=== PATIENT | female | born 1965 | race African-American/Black ===

== ENCOUNTER 2023-06-23 06:51 | Inpatient (IN) | payer OTHER ==
[2023-06-23 07:11] LABS: #Basophils 0.1 thou/uL (0.0-0.2); #Eosinphils 0.1 thou/uL (0.0-0.7); #Monocytes 0.5 thou/uL (0.11-0.59); #Neutrophils 3.7 thou/uL (1.40-6.50); %Eosinophils 1.9 % (0.0-10.0); %Lymphocytes 30.9 % (21.0-51.0); %Monocytes 7.5 % (0.0-10.0); %Neutrophils 58.4 % (42.0-75.0); Hematocrit 40.4 % (36.0-47.0); Hemoglobin 13.2 g/dL (12.0-16.0); Mean Corpuscular HGB CONC 32.7 g/dL (32.0-36.0); Mean Corpuscular Hemoglobin 28.9 pg (27.0-31.0); Mean Corpuscular Volume 88.4 fl (78.0-98.0); Mean Platelet Volume 11.2 fL (7.4-10.4); Platelet Count 195 10x3/uL (130-400); RBC Distribution Width 13.8 % (11.5-14.5); Red Blood Cell (RBC) Count 4.57 mill/uL (4.20-5.40); White Blood Cell (WBC) Count 6.3 10x3/uL (4.8-10.8)
[2023-06-23 07:20] LABS: ALT (SGPT) 18 U/L (8-55); AST (SGOT) 16 U/L (5-34); Albumin 4.3 g/dL (3.5-5.0); Alkaline Phosphatase 127 U/L (40-110); Anion Gap 14 mmol/L (10-20); BUN (Urea Nitrogen) 12 mg/dL (9.8-20.1); Bilirubin, Total 0.3 mg/dL (0.2-1.2); Calc. Creatinine Clearance 0 mL/min (70-130); Calcium 9.1 mg/dL (7.8-10.44); Carbon Dioxide 26 mmol/L (22-29); Chloride 104 mmol/L (98-107); Estimated GFR 70; Globulin 3.7 g/dL (2.4-3.5); Glucose 133 mg/dL (70-105); Potassium 3.5 mmol/L (3.5-5.1); Sodium 140 mmol/L (136-145)
[2023-06-23 07:24] LABS: Troponin I 0.019 ng/mL (< 0.028)
[2023-06-23 07:29] LABS: PTT 27.7 sec (22.9-36.1)
[2023-06-23] MEDS ORDERED: Aspirin Chewable 81 MG TAB ONE (08:23)
[2023-06-23] MEDS ORDERED: Acetaminophen 650 MG Suppository PR PRN (08:49)
[2023-06-23] MEDS ORDERED: Apixaban 5 MG TAB ONE (10:09)
[2023-06-23] MEDS ORDERED: Carvedilol 6.25 MG TAB ONE (10:09)
[2023-06-23] MEDS ORDERED: Aspirin 81 mg Enteric Coated Tablet ONE (10:09)
[2023-06-23] MEDS: Aspirin 81 mg Enteric Coated Tablet PO SCH (10:21)
[2023-06-23] MEDS: Apixaban 5 MG TAB PO SCH (10:22)
[2023-06-23] MEDS: Carvedilol 6.25 MG TAB PO SCH ×2 (10:22→17:47)
[2023-06-23] MEDS: dilTIAZem CD 300 MG CAP PO SCH (10:23)
[2023-06-23] MEDS: Oxybutynin ER 5 MG TAB PO SCH (10:40)
[2023-06-23 11:47] VITALS: BMI 36.6
[2023-06-23] MEDS: Atorvastatin Calcium 40 MG TAB PO SCH (21:29)
[2023-06-23] MEDS: Sertraline 100 MG TAB PO SCH (21:35)
[2023-06-24 04:23] LABS: #Basophils 0.1 thou/uL (0.0-0.2); #Eosinphils 0.2 thou/uL (0.0-0.7); #Monocytes 0.6 thou/uL (0.11-0.59); #Neutrophils 3.1 thou/uL (1.40-6.50); %Eosinophils 2.7 % (0.0-10.0); %Monocytes 9.3 % (0.0-10.0); %Neutrophils 48.7 % (42.0-75.0); Hematocrit 39.9 % (36.0-47.0); Hemoglobin 12.7 g/dL (12.0-16.0); Mean Corpuscular HGB CONC 31.8 g/dL (32.0-36.0); Mean Corpuscular Volume 88.1 fl (78.0-98.0); Mean Platelet Volume 11.2 fL (7.4-10.4); Platelet Count 198 10x3/uL (130-400); RBC Distribution Width 13.9 % (11.5-14.5); Red Blood Cell (RBC) Count 4.53 mill/uL (4.20-5.40); White Blood Cell (WBC) Count 6.3 10x3/uL (4.8-10.8)
[2023-06-24 04:51] LABS: Anion Gap 10 mmol/L (10-20); BUN (Urea Nitrogen) 13 mg/dL (9.8-20.1); Calc. Creatinine Clearance 123 mL/min (70-130); Carbon Dioxide 28 mmol/L (22-29); Cardiac Risk 3.3 (Less than 4.5); Chloride 104 mmol/L (98-107); Cholesterol 147 mg/dl (< 200 Desired); Estimated GFR 74; Glucose 119 mg/dL (70-105); HDL Cholesterol 45 mg/dL (>60 Neg Risk); LDL Cholesterol, Calculated 88 mg/dL; Potassium 3.5 mmol/L (3.5-5.1); Sodium 138 mmol/L (136-145); Triglycerides 71 mg/dL (Less than 150)
[2023-06-24] MEDS: Oxybutynin ER 5 MG TAB PO SCH (10:30)
[2023-06-24] MEDS ORDERED: Iopamidol-370 76% 500 ML MDV (1 ML CHARGE) ONE (15:37)
[2023-06-24] MEDS: Sertraline 100 MG TAB PO SCH (21:57)
[2023-06-25 05:43] LABS: #Basophils 0.1 thou/uL (0.0-0.2); #Eosinphils 0.2 thou/uL (0.0-0.7); #Monocytes 0.7 thou/uL (0.11-0.59); #Neutrophils 2.6 thou/uL (1.40-6.50); %Eosinophils 3.3 % (0.0-10.0); %Lymphocytes 41.3 % (21.0-51.0); %Monocytes 10.8 % (0.0-10.0); %Neutrophils 43.4 % (42.0-75.0); Hematocrit 40.6 % (36.0-47.0); Hemoglobin 13.1 g/dL (12.0-16.0); Mean Corpuscular HGB CONC 32.3 g/dL (32.0-36.0); Mean Corpuscular Hemoglobin 28.7 pg (27.0-31.0); Mean Corpuscular Volume 88.8 fl (78.0-98.0); Mean Platelet Volume 11.1 fL (7.4-10.4); Platelet Count 192 10x3/uL (130-400); Red Blood Cell (RBC) Count 4.57 mill/uL (4.20-5.40)
[2023-06-25 06:03] LABS: Anion Gap 14 mmol/L (10-20); BUN (Urea Nitrogen) 15 mg/dL (9.8-20.1); Calc. Creatinine Clearance 117 mL/min (70-130); Calcium 8.8 mg/dL (7.8-10.44); Carbon Dioxide 27 mmol/L (22-29); Chloride 104 mmol/L (98-107); Estimated GFR 69; Glucose 114 mg/dL (70-105); Potassium 4.1 mmol/L (3.5-5.1); Sodium 141 mmol/L (136-145)
[2023-06-25] MEDS: Losartan 25 MG TAB PO SCH (09:25)
[2023-06-26 06:39] LABS: #Basophils 0.1 thou/uL (0.0-0.2); #Eosinphils 0.2 thou/uL (0.0-0.7); #Monocytes 0.7 thou/uL (0.11-0.59); #Neutrophils 3.3 thou/uL (1.40-6.50); %Basophils 0.9 % (0.0-1.0); %Eosinophils 2.6 % (0.0-10.0); %Lymphocytes 38.5 % (21.0-51.0); %Monocytes 9.7 % (0.0-10.0); %Neutrophils 48.2 % (42.0-75.0); Hematocrit 41.2 % (36.0-47.0); Hemoglobin 13.1 g/dL (12.0-16.0); Mean Corpuscular HGB CONC 31.8 g/dL (32.0-36.0); Mean Corpuscular Hemoglobin 28.3 pg (27.0-31.0); Mean Platelet Volume 11.5 fL (7.4-10.4); Platelet Count 198 10x3/uL (130-400); RBC Distribution Width 13.8 % (11.5-14.5); Red Blood Cell (RBC) Count 4.63 mill/uL (4.20-5.40); White Blood Cell (WBC) Count 6.8 10x3/uL (4.8-10.8)
[2023-06-26 07:09] LABS: Anion Gap 12 mmol/L (10-20); BUN (Urea Nitrogen) 11 mg/dL (9.8-20.1); Calc. Creatinine Clearance 130 mL/min (70-130); Calcium 8.8 mg/dL (7.8-10.44); Carbon Dioxide 27 mmol/L (22-29); Chloride 106 mmol/L (98-107); Estimated GFR 80; Glucose 117 mg/dL (70-105); Potassium 4.2 mmol/L (3.5-5.1); Sodium 141 mmol/L (136-145)
[2023-06-26] MEDS: Carvedilol 6.25 MG TAB PO SCH ×2 (10:29→16:13)
[2023-06-26] MEDS: Hydrochlorothiazide 25 MG TAB PO SCH (13:39)
[2023-06-27 06:32] LABS: #Basophils 0.1 thou/uL (0.0-0.2); #Eosinphils 0.2 thou/uL (0.0-0.7); #Monocytes 0.7 thou/uL (0.11-0.59); #Neutrophils 3.3 thou/uL (1.40-6.50); %Basophils 0.9 % (0.0-1.0); %Eosinophils 2.5 % (0.0-10.0); %Lymphocytes 38.4 % (21.0-51.0); %Monocytes 10.6 % (0.0-10.0); %Neutrophils 47.3 % (42.0-75.0); Hematocrit 42.1 % (36.0-47.0); Hemoglobin 13.4 g/dL (12.0-16.0); Mean Corpuscular HGB CONC 31.8 g/dL (32.0-36.0); Mean Corpuscular Volume 88.1 fl (78.0-98.0); Mean Platelet Volume 10.4 fL (7.4-10.4); Platelet Count 192 10x3/uL (130-400); RBC Distribution Width 13.6 % (11.5-14.5); Red Blood Cell (RBC) Count 4.78 mill/uL (4.20-5.40); White Blood Cell (WBC) Count 6.9 10x3/uL (4.8-10.8)
[2023-06-27 06:59] LABS: Anion Gap 10 mmol/L (10-20); BUN (Urea Nitrogen) 15 mg/dL (9.8-20.1); Calc. Creatinine Clearance 122 mL/min (70-130); Calcium 9.1 mg/dL (7.8-10.44); Carbon Dioxide 29 mmol/L (22-29); Chloride 103 mmol/L (98-107); Estimated GFR 73; Glucose 135 mg/dL (70-105); Sodium 138 mmol/L (136-145)
[2023-06-27] MEDS: Acetaminophen 325 MG TAB PO PRN (09:28)
[2023-06-27] MEDS: Hydrochlorothiazide 25 MG TAB PO SCH (09:29)
[2023-06-28 06:27] LABS: #Basophils 0.1 thou/uL (0.0-0.2); #Eosinphils 0.1 thou/uL (0.0-0.7); #Monocytes 0.6 thou/uL (0.11-0.59); #Neutrophils 2.9 thou/uL (1.40-6.50); %Eosinophils 2.3 % (0.0-10.0); %Lymphocytes 39.6 % (21.0-51.0); %Monocytes 9.4 % (0.0-10.0); %Neutrophils 47.4 % (42.0-75.0); Hemoglobin 13.2 g/dL (12.0-16.0); Mean Corpuscular HGB CONC 32.2 g/dL (32.0-36.0); Mean Corpuscular Hemoglobin 28.4 pg (27.0-31.0); Mean Corpuscular Volume 88.4 fl (78.0-98.0); Mean Platelet Volume 10.9 fL (7.4-10.4); Platelet Count 198 10x3/uL (130-400); RBC Distribution Width 13.8 % (11.5-14.5); Red Blood Cell (RBC) Count 4.64 mill/uL (4.20-5.40); White Blood Cell (WBC) Count 6.1 10x3/uL (4.8-10.8)
[2023-06-28 06:49] LABS: Anion Gap 12 mmol/L (10-20); BUN (Urea Nitrogen) 19 mg/dL (9.8-20.1); Calc. Creatinine Clearance 115 mL/min (70-130); Calcium 8.8 mg/dL (7.8-10.44); Carbon Dioxide 28 mmol/L (22-29); Chloride 103 mmol/L (98-107); Estimated GFR 69; Glucose 141 mg/dL (70-105); Potassium 3.9 mmol/L (3.5-5.1); Sodium 139 mmol/L (136-145)
[2023-06-29 05:56] LABS: #Basophils 0.1 thou/uL (0.0-0.2); #Eosinphils 0.2 thou/uL (0.0-0.7); #Monocytes 0.7 thou/uL (0.11-0.59); #Neutrophils 2.9 thou/uL (1.40-6.50); %Basophils 0.9 % (0.0-1.0); %Eosinophils 2.6 % (0.0-10.0); %Lymphocytes 41.7 % (21.0-51.0); %Monocytes 10.6 % (0.0-10.0); Hematocrit 39.6 % (36.0-47.0); Hemoglobin 12.8 g/dL (12.0-16.0); Mean Corpuscular HGB CONC 32.3 g/dL (32.0-36.0); Mean Corpuscular Hemoglobin 28.1 pg (27.0-31.0); Mean Platelet Volume 11.4 fL (7.4-10.4); Platelet Count 190 10x3/uL (130-400); RBC Distribution Width 13.6 % (11.5-14.5); Red Blood Cell (RBC) Count 4.55 mill/uL (4.20-5.40); White Blood Cell (WBC) Count 6.5 10x3/uL (4.8-10.8)
[2023-06-29 06:14] LABS: Anion Gap 11 mmol/L (10-20); BUN (Urea Nitrogen) 20 mg/dL (9.8-20.1); Calc. Creatinine Clearance 105 mL/min (70-130); Calcium 8.8 mg/dL (7.8-10.44); Carbon Dioxide 28 mmol/L (22-29); Chloride 104 mmol/L (98-107); Estimated GFR 62; Glucose 123 mg/dL (70-105); Potassium 3.8 mmol/L (3.5-5.1); Sodium 139 mmol/L (136-145)
[2023-06-29 12:04] VITALS: TEMP 97.4
[2023-06-29 12:10] VITALS: BP 178/80
== END 2023-06-29 15:25 | DRG 65 ==
LOC: ERS 06:51 → ERHOLD 08:42 → OBSVTOIN 08:43 → 2SE 15:32
PROVIDERS: ADMIT Family Medicine; ATTEND Internal Medicine
DX: I63.9 Cerebral infarction, unspecified (principal); I69.353 Hemiplegia and hemiparesis following cerebral infarction affecting right non-dominant side; N39.41 Urge incontinence; F32.A Depression, unspecified; K21.9 Gastro-esophageal reflux disease without esophagitis; R33.9 Retention of urine, unspecified; E11.9 Type 2 diabetes mellitus without complications; E78.5 Hyperlipidemia, unspecified; I10 Essential (primary) hypertension; R29.6 Repeated falls; I48.0 Paroxysmal atrial fibrillation; Z88.8 Allergy status to other drugs, medicaments and biological substances; Z79.82 Long term (current) use of aspirin; Z79.899 Other long term (current) drug therapy; Z90.710 Acquired absence of both cervix and uterus
CPT/HCPCS: 36415; 36416; 70450; 70496; 70498; 70551; 71045; 80048; 80053; 80061; 83036; 84484; 85025; 85610; 85730; 93005; 93306; Q9967